=== PATIENT | female | born 2000 | race Caucasian/White ===

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

== ENCOUNTER 2019-01-02 20:32 | Emergency (ER) | payer OTHER ==
[~2019-01-02] VITALS: Ht 162.6 cm; Wt 43.8 kg
[~2019-01-02 20:32] MED LIST changes: +XANAX 1 MG TABLE1 MG PO; +ZOFRAN ODT4 MG PO
[2019-01-02] MEDS ORDERED: LEXAPRO20 MG (20:48)
[2019-01-02] MEDS ORDERED: ESTARYLLA1 EACH (20:49)
[2019-01-02 20:59] LABS: URINE BILIRUBIN 1+ (Negative); URINE BLOOD NEGATIVE (Negative); URINE CLARITY CLEAR; URINE COLOR YELLOW; URINE GLUCOSE-RANDOM NEGATIVE (Negative); URINE KETONES 3+ (Negative); URINE LEUKOCYTES-REFLEX NEGATIVE (Negative); URINE NITRITE-REFLEX NEGATIVE (Negative); URINE PROTEIN 1+ (Negative); URINE SPECIFIC GRAVITY 1.025 (1.005-1.030); URINE UROBILINOGEN 0.2 E.U./dl (0.2-1.0)
[2019-01-02 21:01] LABS: ICTOTEST (BILI CONFIRMATORY) Negative (Negative)
[2019-01-02 21:51] LABS: ABSOLUTE LYMPHOCYTES 1.8 thou/uL (0.8-5.3); ABSOLUTE NEUTROPHILS 8.3 thou/uL (1.6-8.1); BASOPHILS 0.3 %; HEMATOCRIT 36.1 % (37.0-47.0); HEMOGLOBIN 11.9 gm/dL (12.0-15.0); LYMPHOCYTES 16.2 %; MCH 28.9 pg (26.0-34.0); MCHC 32.9 g/dL (28.0-37.0); MCV 87.7 fL (80.0-100.0); MONOCYTES 9.4 %; MPV 9.6 fl. (7.2-11.1); NUCLEATED RBCS 0 /100WBC; PLATELET COUNT* 284 thou/uL (150-400); POLYS 74.1 %; RBC 4.12 mil/uL (4.20-5.00); RDW-CV 13.6 % (10.5-14.5); WBC 11.1 thou/uL (4.0-11.0)
[2019-01-02 22:08] LABS: CREATININE 0.8 mg/dL (0.6-1.3); POTASSIUM 3.3 mmol/L (3.5-5.1); TOTAL BILIRUBIN 0.4 mg/dL (<0.1-1.0); TOTAL PROTEIN 6.9 g/dL (6.4-8.2)
[2019-01-02] MEDS ORDERED: XANAX 0.5 MG0.5 MG PO (22:28)
[2019-01-02] MEDS ORDERED: ONDANSETRON HCL4 M2 PO (22:28)
[2019-01-02 23:15] VITALS: BP 115/72
== END 2019-01-02 23:16 | disposition home or self-care (01) ==
LOC: M.ERS 20:32
PROVIDERS: Nurse Practitioner Family
DX: F41.9 Anxiety disorder, unspecified (principal); R11.2 Nausea with vomiting, unspecified; E87.6 Hypokalemia